=== PATIENT | male | born 1995 | race Caucasian/White ===

== ENCOUNTER 2025-06-01 11:24 | Emergency (ER) | payer OTHER, SELFPAY ==
--- NOTE | ~2025-06-01 | CT_ITS ---
CT scan of the Neck Technique: 2.5 mm axial scans were obtained through the neck after intravenous administration of 75 c c Omnipaque 350. Coronal and sagittal reconstructions of the neck were obtained. Dose reduction techn ique was used on this scan by utilizing automated exposure control and iterative reconstruction techn ique. The dose-length product (DLP) was 639.04 mGy-cm. Clinical History: Throat pain, difficulty swallowing Findings: There is no evidence of any significant cervical lymphadenopathy. Several small, nonenlarged jugulo- digastric and posterior cervical lymph nodes are noted bilaterally. Parapharyngeal spaces appear norm al bilaterally. The parotid and submandibular glands appear normal. Question mild asymmetric prominence of the posterior right base of tongue region. The thyroid gland appears normal. Images of the lung apices reveal no abnormalities. Impression: Questionable asymmetric prominence of the posterior right base of tongue region. Correlation with dir ect inspection advised. Reviewed, dictated and finalized at location . Impression: Questionable asymmetric prominence of the posterior right base of tongue region . Correlation with direct inspection advised.
[2025-06-01 11:29] VITALS: BP 155/93; PULSE 114; RESP 18; TEMP 36.9; O2SAT 99
--- NOTE | 2025-06-01 11:31 | ED.GENADULT ---
HPI - General Adult General Chief complaint: Upper Respiratory Infection Stated complaint: not feeling well Time Seen by Provider: 06/01/25 11:30 History of Present Illness HPI narrative: Clayton is a 30M with a PMH of a genetic heart condition that presented to the ED with a couple concerns. He has had a worsening right sided sore throat for 2 weeks. No fevers or vomiting. In addition last night he had an episode where his heart was racing, he had dyspna, and he developed the worst headache of his life that kept him up all night. He continues to have the occipital headache today. Related Data Allergies Allergy/AdvReac Type Severity Reaction Status Date / Time shrimp Allergy Mild Unknown Verified 06/01/25 11:47 Review of Systems Review of Systems: All systems reviewed & are unremarkable except as noted in HPI and below Exam Const: General: cooperative, healthy appearing, comfortable, no acute distress, well developed, alert, awake and Physically active Orientation/consciousness: oriented to person, oriented to place and oriented to time HENMT: Head: normal to inspection, normocephalic and atraumatic Ears: hearing grossly normal bilaterally and external ears normal Face/Nose/Sinus: Normal external nose present Other: Right sided anterior cervical lymphadenopathy and 1cm thyroid nodule on the left Eyes: General: appearance normal, both eyes and all related structures Periorbital: periorbital findings normal Sclera: sclerae normal Pupils: Equal, round and reactive pupils present Neck: Neck: normal visual inspection Chest: Chest palpation & inspection: normal inspection of the chest Resp: Effort & Inspection: normal respiratory effort, able to speak in complete sentences and no respiratory distress Auscultation: clear to auscultation bilaterally Cardio: Jugular venous distension: no JVD Rate: regular rate Rhythm: regular rhythm Skin: General skin exam: normal color and no rashes or lesions noted Neuro: General: oriented to person, oriented to place and oriented to time Cranial nerves: Yes Equal, round and reactive pupils present Extrem: General: normal to inspection Psych: Other: anxious appearing Course Course Emergency Course: EKG showed sinus tachycardia with a rate of 119, normal axis, no ST elevation/depression Given hydrocodone and lorazepam for pain and anxiety CT scan of the Neck Technique: 2.5 mm axial scans were obtained through the neck after intravenous administration of 75 cc Omnipaque 350. Coronal and sagittal reconstructions of the neck were obtained. Dose reduction technique was used on this scan by utilizing automated exposure control and iterative reconstruction technique. The dose-length product (DLP) was 639.04 mGy-cm. Clinical History: Throat pain, difficulty swallowing Findings: There is no evidence of any significant cervical lymphadenopathy. Several small, nonenlarged jugulo- digastric and posterior cervical lymph nodes are noted bilaterally. Parapharyngeal spaces appear normal bilaterally. The parotid and submandibular glands appear normal. Question mild asymmetric prominence of the posterior right base of tongue region. The thyroid gland appears normal. Images of the lung apices reveal no abnormalities. Impression: Questionable asymmetric prominence of the posterior right base of tongue region. Correlation with direct inspection advised. Strep +, CRP was mildly elevated. Very mild leukocytosis. Vital Signs Vital signs: Vital Signs Temperature 98.5 F 06/01/25 11:29 Pulse Rate 114 H 06/01/25 11:29 Respiratory Rate 18 06/01/25 11:29 Blood Pressure 155/93 H 06/01/25 11:29 Pulse Oximetry 99 06/01/25 11:29 Oxygen Delivery Room Air 06/01/25 11:29 Temperature 98.5 F 06/01/25 11:29 Pulse Rate 114 H 06/01/25 11:29 Respiratory Rate 18 06/01/25 11:29 Blood Pressure 155/93 H 06/01/25 11:29 Pulse Oximetry 99 06/01/25 11:37 Oxygen Delivery Room Air 06/01/25 11:37 Medical Decision Making Vital Signs Vital Signs: Vital Signs Temperature 98.5 F 06/01/25 11:29 Pulse Rate 114 H 06/01/25 11:29 Respiratory Rate 18 06/01/25 11:29 Blood Pressure 155/93 H 06/01/25 11:29 Pulse Oximetry 99 06/01/25 11:29 Oxygen Delivery Room Air 06/01/25 11:29 Temperature 98.5 F 06/01/25 11:29 Pulse Rate 114 H 06/01/25 11:29 Respiratory Rate 18 06/01/25 11:29 Blood Pressure 155/93 H 06/01/25 11:29 Pulse Oximetry 99 06/01/25 11:37 Oxygen Delivery Room Air 06/01/25 11:37 Lab Data 06/01/25 11:50 06/01/25 11:50 Labs: Lab Results 06/01/25 06/01/2506/01/25 Range/Units 11:35 11:39 11:50 WBC 10.9 H (4.8-10.8) K/mm3 RBC 4.86 (4.70-6.10) M/mm3 Hgb 14.8 (14.0-18.0) g/dL Hct 42.1 (40.0-54.0) % MCV 86.6 (78.0-102.0) fL MCH 30.5 (27.0-31.0) pg MCHC 35.2 (32-36) g/dL RDW 12.1 (11.6-14.4) % Plt Count 189 (150-420) K/mm3 MPV 9.0 (8.7-11.0) fl Immature Gran % (Auto) 0.6 H (0.0-0.0) % Neut % (Auto) 75.9 H (50.0-70.0) % Lymph % (Auto) 11.6 L (18.0-42.0) % [place] % (Auto) 11.4 H (2.0-11.0) % Eos % (Auto) 0.2 L (1.0-6.0) % Baso % (Auto) 0.3 (0.0-1.0) % Lymph # (Auto) 1.26 (1.10-4.50) K/mm3 [place] # (Auto) 1.24 H (0.10-0.90) K/mm3 Eos # (Auto) 0.02 (0.02-0.50) K/mm3 Baso # (Auto) 0.03 (0.00-0.10) K/mm3 Abs Immat Gran (auto) 0.06 H (0.00-0.00) K/mm3 Absolute Neuts (auto) 8.27 H (1.70-7.20) K/mm3 Absolute Nucleated RBC 0.00 (0.00-0.00) K/mm3 Nucleated RBC % 0.0 (0-0.0) % Sodium 138 (137-145) mmol/L Potassium 4.0 (3.4-5.0) mmol/L Chloride 100 (98-107) mmol/L Carbon Dioxide 27 (22-30) mmol/L Anion Gap 11 (4-12) mmol/L BUN 14 (9-20) mg/dL Creatinine 1.11 (0.7-1.3) mg/dL Estim Creat Clear Calc 119 ml/min Estimated GFR > 60 (59 - ) Glucose 135 H (65-110) mg/dL Calculated Osmolality 288 (285-295) mOsm/kg Calcium 9.8 (8.4-10.2) mg/dL Total Bilirubin 1.0 (0.2-1.3) mg/dL AST 72 H (17-59) U/L ALT 114 H (6-50) U/L Alkaline Phosphatase 48 (38-126) U/L Troponin I < 0.012 (0.000-0.034) ng/mL C-Reactive Protein 3.4 H (<1.0) mg/dL Total Protein 8.4 H (6.3-8.2) g/dL Albumin 5.0 (3.5-5.1) g/dL TSH 1.090 (0.465-4.680) uIU/mL Influenza A (RT-PCR) Negative (Negative) Influenza B (RT-PCR) Negative (Negative) RSV (RT-PCR) Negative (Negative) SARS-CoV-2 RNA (RT-PCR) Negative (Negative) Group A Strep (PCR) Detected A (Negative) Discharge Plan Discharge Clinical Impression: Acute streptococcal pharyngitis, Sinus tachycardia Patient Disposition: Home Condition: Stable Instructions: Antibiotic Form Patient Language: Emirati Prescriptions: New amoxicillin 500 mg tablet 500 mg PO Q12H Qty: 20 0RF Follow-up/Referrals: Tamie Ro MD [Primary Care Provider] -
[2025-06-01 11:37] VITALS: O2SAT 99
--- NOTE | 2025-06-01 11:42 | ECG_ITS ---
Test Date: 2025-06-01 11:48:35 Measurements Intervals [place] Rate: 119 P: 55 GA: 159 QRS: 62 QRSD: 106 T: 35 QT: 304 QTc: 429 Interpretive Statements SINUS TACHYCARDIA BASELINE ARTIFACT- I, II, III, AVR, AVL , AVF, V1-V4 ABNORMAL ECG No previous ECG available for comparison Electronically Signed On 06-01-2025 14:50:25 CDT by Cliff Peralta D.O.
--- NOTE | 2025-06-01 11:44 | PC.NURSE ---
covid culture sent to lab
[2025-06-01 11:55] LABS: Hematocrit 42.1 % (40.0-54.0); Hemoglobin 14.8 g/dL (14.0-18.0); Immature Granulocyte Percent A 0.6 % (0.0-0.0); Lymphocytes Absolute Auto 1.26 K/mm3 (1.10-4.50); Mean Corpuscular HGB Conc 35.2 g/dL (32-36); Mean Corpuscular Hemoglobin 30.5 pg (27.0-31.0); Mean Corpuscular Volume 86.6 fL (78.0-102.0); Nucleated Red Blood Cells Absolute Auto 0.00 K/mm3 (0.00-0.00); Nucleated Red Blood Cells Perc 0.0 % (0-0.0); Platelet Count Result 189 K/mm3 (150-420); Red Blood Count 4.86 M/mm3 (4.70-6.10); White Blood Count 10.9 K/mm3 (4.8-10.8)
[2025-06-01 12:01] LABS: Strep Group A RT-PCR DETECTED (Negative)
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
--- OUTSIDE RECORDS SUMMARY | 2025-06-01 12:10 | XMS_ITS | Encounter Summary ---
Author Organization [facility] Address [address] [place] [address] Care Team Providers Care Parole Or Probation Officer Name Role Phone Peter Werner MD Primary Care Provider [phone] Tamie Ro MD Primary Care Provider [phone] Encounter Details Date Type Department Care Team ([facility] st Contact Info) Description 03/23/2019 Abstract SFL CONVERSION [address] [place] [address] , Generic Conversion, Social History Tobacco Use Types Packs/Day Years Used Date Smoking Tobacco: Never Assessed Sex and Gender Information Value Date Recorded Sex Assigned at Male 02/26/2020 7:27 PM CDT Legal Sex Male 5:46 PM EVISCERATOR Gender Identity Male 02/26/2020 7:27 PM CDT Sexual Orientation Not on file documented as of this encounter Plan of Treatment Not on file documented as of this encounter Visit Diagnoses Not on filedocumented in this encounter Additional Health Concerns Infection Onset Date Last Indicated Resolved Time COVID-19 Rule Out 09/10/2022 09/10/2022 09/10/2022 3:48 PM EVISCERATOR documented as of this encounter Care Teams Parole Or Probation Officer Relationship Specialty Start Date End Date [place] [address] PCP - General FAMILY PRACTICE 06/04/19 09/09/22 Tam[place] [id number] PCP - General FAMILY PRACTICE 09/10/22 documented as of this encounter
[2025-06-01 12:20] LABS: Influenza A QL RT-PCR Negative (Negative); Influenza B QL RT-PCR Negative (Negative); RSV RNA, RT-PCR Negative (Negative); SARS-CoV-2 RNA PCR Negative (Negative)
[2025-06-01 12:21] LABS: Alanine Aminotransferase 114 U/L (6-50); Albumin Level 5.0 g/dL (3.5-5.1); Alkaline Phosphatase 48 U/L (38-126); Anion Gap 11 mmol/L (4-12); Aspartate Amino Transferase 72 U/L (17-59); Bilirubin,Total 1.0 mg/dL (0.2-1.3); Blood Urea Nitrogen 14 mg/dL (9-20); CRP 3.4 mg/dL (<1.0); Calcium 9.8 mg/dL (8.4-10.2); Carbon Dioxide 27 mmol/L (22-30); Chloride 100 mmol/L (98-107); Estimated CRCL calculation 119 ml/min; Estimated Glomerular Filt Rate > 60; Glucose 135 mg/dL (65-110); Osmolality Calculated 288 mOsm/kg (285-295); Potassium 4.0 mmol/L (3.4-5.0); Sodium 138 mmol/L (137-145); Total Protein 8.4 g/dL (6.3-8.2)
[2025-06-01 12:30] LABS: Troponin I < 0.012 ng/mL (0.000-0.034)
[2025-06-01] MEDS: HYDROcodone/acetaminophen (*CRX) 10-325 MG TABLET 1 TAB PO (12:39)
[2025-06-01] MEDS: LORazepam (*CRX) 0.5 MG TABLET PO (12:39)
[2025-06-01 12:45] LABS: Thyroid Stimulating Hormone 1.090 uIU/mL (0.465-4.680)
[2025-06-01] MEDS: AMOXICILLIN 500 MG CAPSULE PO (13:12)
[2025-06-01 13:23] VITALS: BP 151/93; PULSE 121; RESP 16; TEMP 37.9; O2SAT 99
== END 2025-06-01 13:34 | disposition home or self-care (01) ==
PROVIDERS: Emergency Provider Family Medicine; PCP Family Medicine
DX: J02.0 Streptococcal pharyngitis (principal); R00.0 Tachycardia, unspecified; Z20.822 Contact with and (suspected) exposure to COVID-19
CPT/HCPCS: 36415; 70491; 80053; 84443; 84484; 85025; 86140; 87637; 87651; 93005; 99284; A9270; Q9967

== ENCOUNTER 2025-06-15 09:38 | Emergency (ER) | payer OTHER, SELFPAY ==
[2025-06-15 09:38] VITALS: BP 162/91; PULSE 94; RESP 17; TEMP 36.6; O2SAT 96
--- NOTE | 2025-06-15 09:50 | ED_ITS ---
HPI - URI/Sore Throat General Chief Complaint: Upper Respiratory Infection Stated Complaint: congestion Time Seen by Provider: 06/15/25 09:49 Source: patient Mode of arrival: ambulatory Limitations: no limitations History of Present Illness HPI Narrative: Patient is a 30-year-old male with a sore throat and recently treated for strep last week. His family is here being seen with sore throat and strep. MD elicited complaint: sore throat Pertinent past history: other ( Negative) Onset (ago): week(s) ( 2) Consistency: constant and progressively worsening Severity: moderate Pain scale (0-10): 5 Description of mucous: clear Able to tolerate fluids by mouth: Yes Exacerbating factors: swallowing Relieving factors: nothing Context: sick contacts Associated symptoms: denies other symptoms Treatments prior to arrival: none Related Data Allergies Allergy/AdvReac Type Severity Reaction Status Date / Time shrimp Allergy Mild Unknown Verified 06/15/25 10:20 Review of Systems Review of Systems: All systems reviewed & are unremarkable except as noted in HPI and below Constitutional: Constitutional: Reports no additional constitutional complaints Eyes: Eyes: Reports no additional eye complaints ENT: Reports system reviewed and no additional complaints, except as documented Cardiovascular: Cardiovascular: Reports no additional cardiovascular complaints Respiratory: Respiratory: Reports no additional respiratory complaints Gastrointestinal: Gastrointestinal: Reports no additional gastrointestinal complaints Genitourinary: Genitourinary: Reports no additional male genitourinary complaints Musculoskeletal: Musculoskeletal: Reports no additional musculoskeletal complaints Integumentary/Breasts: Skin/Breast: Reports system reviewed and no additional complaints, except as docu Neurologic: Reports system reviewed and no additional complaints, except as documented Psychiatric: Psychiatric: Reports no additional psychiatric complaints Endocrine: Endocrine: Reports no additional endocrine complaints Hematologic/Lymphatic: Hematologic/Lymphatic: Reports no additional hematologic/lymphatic complaints Allergic/Immunologic: Allergic/Immunologic: Reports no additional allergic/immunologic complaints Exam 2 Const: General: healthy appearing Nutritional Appearance: well nourished Orientation/consciousness: patient oriented x3 HENMT: Head: normal to inspection Ears: external ears normal Face/Nose/Sinus: Normal external nose present Throat: posterior oropharynx abnormal Other: red oropharynx with tonsillar hypertrophy and no pus Eyes: Conjunctivae: conjunctivae normal Pupils: Equal, round and reactive pupils present EOM: EOMs intact bilaterally Neck: Neck: normal visual inspection Chest: Chest palpation & inspection: normal inspection of the chest Resp: Effort & Inspection: normal respiratory effort and not labored Auscultation: clear to auscultation bilaterally and no crackles Cardio: Rate: regular rate Rhythm: regular rhythm Heart sounds: no murmurs GI: Inspection: non-distended GI Palp: Yes Soft to palpation and No Tenderness to palpation present (GI) Auscultation: normal bowel sounds : General: Yes bladder normal to palpation Back/Spine/Pelvis: Back: no CVA tenderness Skin: General skin exam: normal color Rashes: no rashes Wounds: no wounds Neuro: General: patient oriented x3, moves all extremities and no meningeal signs Extrem: General: normal to inspection Psych: Mental Status: mental status grossly normal Affect: normal affect Attitude: cooperative Course Vital Signs Vital signs: Vital Signs Temperature 36.6 C 06/15/25 09:38 Pulse Rate 94 06/15/25 09:38 Respiratory Rate 17 06/15/25 09:38 Blood Pressure 162/91 H 06/15/25 09:38 Pulse Oximetry 96 06/15/25 09:38 Temperature 36.6 C 06/15/25 11:18 Pulse Rate 85 06/15/25 11:18 Respiratory Rate 17 06/15/25 11:18 Blood Pressure 147/82 H 06/15/25 11:18 Pulse Oximetry 97 06/15/25 11:18 Oxygen Delivery Room Air 06/15/25 11:18 MDM - URI/Sore Throat MDM Narrative Medical decision making narrative: patient is a 30-year-old male with a sore throat and recently treated for strep. His family is here also with strep positive. We will go ahead and retreat the patient with amoxicillin. He had a negative strep however everyone else in the family are all positive for strep. Lab Data Attestation: I reviewed the patient's lab results. Labs: Lab Results 06/15/25 Range/Units 09:48 Influenza A (RT-PCR) Negative (Negative) Influenza B (RT-PCR) Negative (Negative) RSV (RT-PCR) Negative (Negative) SARS-CoV-2 RNA (RT-PCR) Negative (Negative) Group A Strep (PCR) Not detected (Negative) Discharge Plan Discharge Clinical Impression: Pharyngitis Qualifiers: Pharyngitis/tonsillitis etiology: unspecified etiology Qualified Code(s): J02.9 - Acute pharyngitis, unspecified Patient Disposition: Home Condition: Stable Instructions: Antibiotic Form, Pharyngitis (ED) Patient Language: Kazakh Prescriptions: New amoxicillin 500 mg capsule 500 mg PO BID 10 Days Qty: 20 0RF No Action amoxicillin 500 mg tablet 500 mg PO Q12H Qty: 20 0RF Follow-up/Referrals: Tamie Ro MD [Primary Care Provider, [facility]] Time of Disposition: 11:10
[2025-06-15 10:23] VITALS: O2SAT 96
[2025-06-15 10:35] LABS: Influenza A QL RT-PCR Negative (Negative); Influenza B QL RT-PCR Negative (Negative); RSV RNA, RT-PCR Negative (Negative); SARS-CoV-2 RNA PCR Negative (Negative)
--- OUTSIDE RECORDS SUMMARY | 2025-06-15 10:58 | XMS_ITS | Encounter Summary ---
Author Organization [facility] Address [address] [place] [address] Care Team Providers Care Document Clerk Name Role Phone Peter Werner MD Primary Care Provider [phone] Tamie Ro MD Primary Care Provider [phone] Encounter Details Date Type Department Care Team ([facility] st Contact Info) Description 03/23/2019 Abstract SFL CONVERSION [address] [place] [address] , Generic Conversion, Social History Tobacco Use Types Packs/Day Years Used Date Smoking Tobacco: Never Assessed Sex and Gender Information Value Date Recorded Sex Assigned at Male 02/26/2020 7:27 PM CDT Legal Sex Male 5:46 PM QUALITY ASSURANCE/R&D LAB TECHNICIAN Gender Identity Male 02/26/2020 7:27 PM CDT Sexual Orientation Not on file documented as of this encounter Plan of Treatment Not on file documented as of this encounter Visit Diagnoses Not on filedocumented in this encounter Additional Health Concerns Infection Onset Date Last Indicated Resolved Time COVID-19 Rule Out 09/10/2022 09/10/2022 09/10/2022 3:48 PM QUALITY ASSURANCE/R&D LAB TECHNICIAN documented as of this encounter Care Teams Document Clerk Relationship Specialty Start Date End Date Peter [place] [address] PCP - General FAMILY PRACTICE 06/04/19 09/09/22 [place] [phone] PCP - General FAMILY PRACTICE 09/10/22 documented as of this encounter
[2025-06-15 11:06] LABS: Strep Group A RT-PCR NOT DETECTED (Negative)
[2025-06-15 11:18] VITALS: BP 147/82; PULSE 85; RESP 17; TEMP 36.6; O2SAT 97
== END 2025-06-15 11:18 | disposition home or self-care (01) ==
PROVIDERS: Emergency Provider Emergency Medicine; PCP Family Medicine
DX: J02.9 Acute pharyngitis, unspecified (principal); Z20.822 Contact with and (suspected) exposure to COVID-19
CPT/HCPCS: 87637; 87651; 99283